=== PATIENT | female | born 1985 | race Two or more races ===

== ENCOUNTER 2024-08-21 08:51 | Outpatient (CLI) | payer OTHER | END 2024-08-21 09:05 | disposition home or self-care (01) | LOC: TOM 08:51 | PROVIDERS: ATTEND Obstetrics & Gynecology Reproductive Endocrinology | DX: N63.0 Unspecified lump in unspecified breast (principal) ==

== ENCOUNTER → 2024-08-23 | Outpatient (CLI) | payer OTHER | END | disposition home or self-care (01) | LOC: SONOGRAMA 08:06 | PROVIDERS: ATTEND Obstetrics & Gynecology Reproductive Endocrinology | DX: D28.2 Benign neoplasm of uterine tubes and ligaments (principal) ==